=== PATIENT | female | born 1970 | race Caucasian/White ===

== ENCOUNTER 2021-06-05 11:54 | Emergency (ER) | payer OTHER, SELFPAY ==
[2021-06-05 12:05] VITALS: BP 136/91; PULSE 80; RESP 16; TEMP 36.6; O2SAT 99
--- NOTE | 2021-06-05 12:50 | ED.URI ---
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 because of the way she felt Related Data Home Medications Medication Instructions Recorded Confirmed Adults Multivitamin 06/05/21 Elderberry 06/05/21 Probiotic 06/05/21 cetirizine mg 06/05/21 cholecalciferol (vitamin D3) 50 mcg PO DAILY 06/05/21 06/05/21 [Vitamin D3] conjugated estrogens [Premarin] 06/05/21 empagliflozin [Jardiance] mg 06/05/21 fenofibrate mg 06/05/21 glimepiride mg 06/05/21 lisinopril 06/05/21 metformin mg PO 06/05/21 pantoprazole PO 06/05/21 sitagliptin [Januvia] mg 06/05/21 vitamin E 800 unit PO DAILY 06/05/21 06/05/21 Allergies Allergy/AdvReac Type Severity Reaction Status Date / Time metformin Allergy Unknown Verified 11/11/17 18:27 phenytoin Allergy Unknown Verified 11/11/17 18:27 sitagliptin Allergy Unknown Verified 11/11/17 18:27 venlafaxine Allergy Unknown Verified 11/11/17 18:27 Review of Systems Review of Systems: CONSTITUTIONAL: Denies fever, chills, sweats. Generally not feeling well EYES: Denies visual changes, redness, discharge. ENT: Denies rhinorrhea, congestion, sore throat, otalgia. CARDIOVASCULAR: Denies chest pain, palpitations, edema. RESPIRATORY: Denies dyspnea, wheezing, cough GASTROINTESTINAL: Denies abdominal pain, has nausea, vomiting, diarrhea. GENITOURINARY: Denies dysuria, hematuria, abnormal discharge SKIN: Denies rash or itching. NEUROLOGIC: Denies numbness, or focal weakness. PSYCHIATRIC: Denies anxiety or depression. [facility] Past Medical History Medical History Diabetes Elevated liver enzymes GERD (gastroesophageal reflux disease) HTN (hypertension) Social History Social History (Updated 06/05/21 @ 13:02 by Lakia Padron CNP) Smoking status: Never smoker Alcohol intake: current Comments At time of signature, I agree with nursing past medical, surgical, social and family history. There is no relevant family history pertinent to the presenting complaint. Exam Narrative: GENERAL: This is a well-nourished, well-developed patient, in mild distress. Patient states is not feeling well today HEAD: normocephalic, atraumatic. Has headache EYES: . Sclera clear/white. Vision is grossly intact. EARS: External ears normal, auditory canals clear and without drainage, TMs normal without perforation. Hearing grossly intact. NOSE: External nose normal without nasal discharge, nares without redness, has rhinorrhea. THROAT: Mucous membranes moist, posterior pharynx erythema NECK: Neck supple, non-tender CARDIOVASCULAR: Regular rate and rhythm without murmurs, gallops, or rubs. RESPIRATORY: Clear to auscultation. Breath sounds equal bilaterally. No wheezes, rales, or rhonchi. GASTROINTESTINAL: Abdomen soft, non-tender, SKIN: warm, intact with no suspicious lesions or rash, good texture and turgor. NEURO: awake, alert, and oriented to person, place and time. There were no obvious focal neurologic abnormalities. Steady gait EXTREMITIES: Normal range of motion. BACK: Nontender without deformity Course Course Emergency Course: Patient to [facility] because just does not feel well; afebrile, has nausea and diarrhea, headache COVID PCR- sent Flu test - neg Rest and hydrate - treat headache with tylenol/ibuprofen; zyrtec for congestion. Level of Care: [facility] Visit Vital Signs Vital signs: Vital Signs Temperature 97.8 F 06/05/21 12:05 Pulse Rate 80 06/05/21 12:05 Respiratory Rate 16 06/05/21 12:05 Blood Press
[2021-06-06 21:11] LABS: SARS-CoV-2 RNA PCR Negative
== END 2021-06-05 13:49 | disposition home or self-care (01) ==
PROVIDERS: Emergency Provider Nurse Practitioner
DX: B34.9 Viral infection, unspecified (principal); Z20.822 Contact with and (suspected) exposure to COVID-19; E11.9 Type 2 diabetes mellitus without complications; K21.9 Gastro-esophageal reflux disease without esophagitis; I10 Essential (primary) hypertension
CPT/HCPCS: 87804; 99213; C9803; G0463; U0003; U0005